=== PATIENT | female | born 1990 | race Caucasian/White ===

== ENCOUNTER 2022-09-15 10:43 | Outpatient (CLI) | payer BC, SELFPAY | END 2022-09-15 10:44 | disposition home or self-care (01) | LOC: LKVREF 10:43 | PROVIDERS: PCP Emergency Medicine; Visit Provider Emergency Medicine | DX: Z00.00 Encounter for general adult medical examination without abnormal findings (principal); R63.5 Abnormal weight gain; F41.9 Anxiety disorder, unspecified; F32.A Depression, unspecified | CPT/HCPCS: 84443 ==

== ENCOUNTER 2023-04-12 17:16 | Outpatient (CLI) | payer OTHER, SELFPAY | END 2023-04-12 17:17 | disposition home or self-care (01) | PROVIDERS: PCP Emergency Medicine; Visit Provider Emergency Medicine | DX: Z01.419 Encounter for gynecological examination (general) (routine) without abnormal findings (principal); Z13.6 Encounter for screening for cardiovascular disorders; Z13.1 Encounter for screening for diabetes mellitus | CPT/HCPCS: 80061; 82947 ==

== ENCOUNTER 2024-04-17 08:49 | Outpatient (CLI) | payer OTHER, SELFPAY ==
[2024-04-19 12:12] LABS: HPV Source Cervical; HPV, High Risk by TMA Not Detected
== END 2024-04-17 08:50 | disposition home or self-care (01) ==
PROVIDERS: PCP Emergency Medicine; Visit Provider Emergency Medicine
DX: Z00.00 Encounter for general adult medical examination without abnormal findings (principal); R63.5 Abnormal weight gain; N92.0 Excessive and frequent menstruation with regular cycle; F41.9 Anxiety disorder, unspecified; Z12.4 Encounter for screening for malignant neoplasm of cervix; Z11.51 Encounter for screening for human papillomavirus (HPV); Z13.1 Encounter for screening for diabetes mellitus; Z13.6 Encounter for screening for cardiovascular disorders
CPT/HCPCS: 80061; 82947; 87624; 87625; 88141; 88142

== ENCOUNTER 2024-10-18 15:42 | Outpatient (CLI) | payer OTHER, SELFPAY ==
--- NOTE | 2024-10-30 12:15 | W.PM.SLEEP ---
Sleep Study Details Details Interpreting Provider: Leonardo Date of Sleep Study: 10/18/24 Sleep Study Details: STUDY TYPE:? Home unattended ? BMI:? 25.85 ORDERING PROVIDER:? Leonardo INDICATION:? Concerned about sleep apnea ? SLEEP SUMMARY:? 440 minutes monitored RESPIRATORY SUMMARY:? AHI 14.9 Low oxygen 81 0.5% of study oxygen less than 90% Snoring 100% PERIODIC LIMB MOVEMENTS OF SLEEP:? Not recorded CARDIAC:? Range 58-110, mean 78 beats per minute IMPRESSION:? Mild almost moderate obstructive sleep apnea RECOMMENDATION: Treatment options include CPAP dental appliance and/or airway expansion surgery.
== END 2024-10-18 15:43 | disposition home or self-care (01) ==
LOC: SLEEP 15:44
PROVIDERS: PCP Emergency Medicine; Visit Provider Otolaryngology
DX: G47.33 Obstructive sleep apnea (adult) (pediatric) (principal)
CPT/HCPCS: 95806